=== PATIENT | female | born 1950 | race Native Hawaiian/Other Pacific Islander ===

== ENCOUNTER 2018-07-07 06:35 | Day surgery (SDC) | payer MEDICARE ==
[2018-07-07] MEDS ORDERED: Lidocaine Hydrochloride 5 ML INJ ONE (07:55)
[2018-07-07] MEDS ORDERED: Propofol 10 mg/ml Inj (20 ML) ONE (07:55)
--- NOTE | 2018-07-07 07:58 | CP.SDSHP ---
Same Day Surgery H & P - History Proposed Procedure: colonoscopy Pre-Op Diagnosis: family h/o colon cancer - Previous Medical/Surgical History Cardiac: Hypertension, Other (hyperllipidemia, ) Misc: Other (osteroporosis, breast cyst, parotid cyst) Comments: Father of colon cancer age 47. - Allergies Allergies: Allergies No Known Allergies Allergy (Unverified 08/10/13 11:25) - Physical Exam Vital Signs: Vital Signs 07/07/18 06:54 Temperature 97.8 F Pulse Rate 80 Respiratory 20 Rate Blood Pressure 151/73 H O2 Sat by Pulse 97 Oximetry Mental Status: Alert & Oriented x3 Neuro: WNL Heart: WNL Lungs: WNL GI: WNL - Impression Impression: family h/o colon cancer Pt. Evaluated Today:Candidate for Anesthesia & Procedure: Yes - Date & Time Date: 07/07/18 Time: 07:58 Short Stay Discharge - Short Stay Discharge Admitting Diagnosis/Reason for Visit: CHANGE IN BOWEL HABIT, FAMILY HISTORY OF LUZ Disposition: HOME/ ROUTINE
[2018-07-07 09:16] VITALS: TEMP 98
[2018-07-07 09:17] VITALS: O2SAT 100
[2018-07-07 09:22] VITALS: BP 128/62; PULSE 70; RESP 20
== END 2018-07-07 09:20 | disposition home or self-care (01) ==
LOC: C.ENDO 06:35
PROVIDERS: ATTEND Internal Medicine Gastroenterology
DX: K57.30 Diverticulosis of large intestine without perforation or abscess without bleeding (principal); K64.1 Second degree hemorrhoids; Z80.0 Family history of malignant neoplasm of digestive organs; R19.4 Change in bowel habit; I10 Essential (primary) hypertension
CPT/HCPCS: 45378; J2001; J2704

== ENCOUNTER 2018-09-05 13:35 | Outpatient (CLI) | payer MEDICARE | END 2018-09-05 13:36 | disposition home or self-care (01) | LOC: C.RADH 13:35 ==